=== PATIENT | male | born 1995 | race Caucasian/White ===

== ENCOUNTER 2021-05-24 00:37 | Inpatient (IN) | payer SELFPAY ==
[2021-05-24] MEDS ORDERED: Sodium Bicarb 50 MEQ/50 ML Abboject 8.4% SYRINGE ONE ×3 (00:48→04:39)
[2021-05-24] MEDS ORDERED: CEFAZOLIN 1 GM VIAL ONE (00:58)
[2021-05-24] MEDS ORDERED: Boostrix 0.5 ML (Tdap) VIAL ONE (00:58)
[2021-05-24 00:59] LABS: #Basophils 0.1 thou/uL (0.0-0.2); #Eosinphils 0.1 thou/uL (0.0-0.7); #Lymphocytes 4.2 thou/uL (1.20-3.40); #Monocytes 0.5 thou/uL (0.11-0.59); #Neutrophils 5.7 thou/uL (1.40-6.50); %Basophils 0.6 % (0.0-1.0); %Eosinophils 1.4 % (0.0-10.0); %Lymphocytes 39.2 % (21.0-51.0); %Monocytes 4.9 % (0.0-10.0); Hemoglobin 14.8 g/dL (14.0-18.0); Mean Corpuscular HGB CONC 32.7 g/dL (32.0-36.0); Mean Corpuscular Hemoglobin 33.2 pg (27.0-31.0); Mean Platelet Volume 7.7 fL (7.4-10.4); Platelet Count 251 thou/uL (130-400); RBC Distribution Width 11.8 % (11.5-14.5); Red Blood Cell (RBC) Count 4.45 mill/uL (4.70-6.10); White Blood Cell (WBC) Count 10.6 thou/uL (4.8-10.8)
[2021-05-24] MEDS ORDERED: fentaNYL Citrate/PF 2,000 MCG in Sodium Chloride 0.9% 60 ML IV SCH (01:00)
[2021-05-24 01:10] LABS: Prothrombin Time 51.7 sec (12.0-14.7)
[2021-05-24 01:11] LABS: PTT 107.4 sec (22.9-36.1)
[2021-05-24 01:12] LABS: INR-International Normal Ratio 5.5
[2021-05-24 01:28] LABS: Actual Bicarbonate (HCO3a) 9.4 mEq/L (22-28); Analyzer IN Cardio ER; CO2 Tension 37.7 mmHg (35.0-45.0); Calcium, Ionized (arterial) 0.55 mmol/L (1.12-1.30); Carboxyhemoglobin (COHb) 0.3 gm% (0.0-3.0); Hemoglobin (Hb) 13.8 g/dL (14.0-18.0); Potassium - ABG Lab 4.97 mmol/L (3.70-5.30)
[2021-05-24 01:33] LABS: Puncture Site RRA; pH, Arterial 7.01 (7.35-7.45)
[2021-05-24] MEDS ORDERED: Calcium Chloride 1 GM/10 ML Abboject SYRINGE ONE ×3 (01:33→09:19)
[2021-05-24 01:51] LABS: Anion Gap 34 mmol/L (10-20); BUN (Urea Nitrogen) 21 mg/dL (8.9-20.6); Bilirubin, Total 0.3 mg/dL (0.2-1.2); Calc. Creatinine Clearance 0 mL/min (70-130); Calcium 9.1 mg/dL (7.8-10.44); Carbon Dioxide 13 mmol/L (22-29); Chloride 100 mmol/L (98-107); Glucose 275 mg/dL (70-105); Sodium 140 mmol/L (136-145)
[2021-05-24 01:52] LABS: ALT (SGPT) 609 U/L (8-55); AST (SGOT) 579 U/L (5-34); Albumin 3.7 g/dL (3.5-5.0); Alkaline Phosphatase 64 U/L (40-110); Globulin 2.6 g/dL (2.4-3.5); Protein, Total 6.3 g/dL (6.0-8.3)
[2021-05-24 01:59] LABS: Potassium 6.6 mmol/L (3.5-5.1)
[2021-05-24] MEDS ORDERED: Phenylephrine 10 MG/ML VIAL ONE ×2 (02:13→04:07)
[2021-05-24] MEDS ORDERED: Fentanyl 100 MCG/2 ML VIAL ONE (02:13)
[2021-05-24] MEDS ORDERED: Heparin 5,000 UNITS/ML VIAL ONE ×2 (02:23→04:31)
[2021-05-24] MEDS ORDERED: Protamine Sulfate 50 MG/5 ML VIAL ONE (02:23)
[2021-05-24 02:35] LABS: INR-International Normal Ratio 1.3; Prothrombin Time 16.4 sec (12.0-14.7)
[2021-05-24] MEDS ORDERED: Vecuronium 10 MG VIAL ONE (02:45)
[2021-05-24] MEDS ORDERED: PHENYLEPHRINE-NS 100 MCG/ML 10 ML SYRINGE ONE (02:45)
[2021-05-24] MEDS ORDERED: Rocuronium Bromide 10 MG/ML (10ML VIAL) ONE (02:45)
[2021-05-24] MEDS ORDERED: Dextrose 50% Abboject 50 ML SYRINGE SLOW IVP PRN (02:58)
[2021-05-24] MEDS ORDERED: hydrALAZINE 20 MG/ML VIAL SLOW IVP PRN (02:58)
[2021-05-24] MEDS ORDERED: Insulin Regular 300 UNITS/3 ML VIAL SC PRN (02:58)
[2021-05-24] MEDS ORDERED: Dextrose 5% in Water 1,000 ML IV PRN (02:58)
[2021-05-24] MEDS ORDERED: Sodium Chloride 0.9% 1,000 ML IV SCH (03:15)
[2021-05-24] MEDS ORDERED: Ventilator Sedation Protocol 1 EACH FS SCH (03:15)
[2021-05-24] MEDS ORDERED: Propofol 1,000 MG/100 ML VIAL IV PRN (03:15)
[2021-05-24] MEDS ORDERED: Dextrose 50% Abboject 50 ML SYRINGE ONE (03:35)
[2021-05-24 04:15] LABS: Amphetamine Not Detected (NotDetected); Barbiturates Screen Not Detected (NotDetected); Benzodiazepine Screen Not Detected (NotDetected); Cocaine Metabolite Screen Not Detected (NotDetected); Methadone Not Detected (NotDetected); Methamphetamine Not Detected (NotDetected); Opiate Screen Not Detected (NotDetected); Oxycodone Screen Not Detected (NotDetected); Phencyclidine (PCP) Not Detected (NotDetected); THC/Cannabinoid Screen Not Detected (NotDetected); Tricyclic Screen Not Detected (NotDetected)
[2021-05-24 04:23] LABS: Bilirubin Negative (Negative); Blood, Urine 2+ (Negative); Clarity Clear (Clear); Glucose, Urine (Dipstick) Normal (Negative); Ketone, Urine Negative (Negative); Leukocyte Negative Leu/uL (Negative); Mucous/LPF Rare LPF (<2+); Nitrite Negative (Negative); Protein, Urine (Dipstick) 10 mg/dL (Neg-Trace); RBC/HPF 0-3 HPF (0-3); Specific Gravity, Urine 1.016 (1.002-1.036); Squamous Epithelial None Seen HPF (0-3); Urobilinogen Normal mg/dL (Less than 2); pH, Urine 5.5 (5.0-9.0)
[2021-05-24 04:24] LABS: Bacteria/HPF 1+ HPF (None Seen)
[2021-05-24 04:25] LABS: Urine Culture Reflex Yes Yes
[2021-05-24] MEDS ORDERED: Midazolam HCl 5 mg/5 ml Vial ONE (04:36)
[2021-05-24] MEDS ORDERED: Rocuronium Bromide 50 MG/5 ML VIAL ONE (04:39)
[2021-05-24 07:17] LABS: #Monocytes 0.6 thou/uL (0.11-0.59); #Neutrophils 16.4 thou/uL (1.40-6.50); %Basophils 0.1 % (0.0-1.0); %Eosinophils 0.2 % (0.0-10.0); %Lymphocytes 10.5 % (21.0-51.0); %Monocytes 3.1 % (0.0-10.0); %Neutrophils 86.2 % (42.0-75.0); Mean Corpuscular HGB CONC 33.1 g/dL (32.0-36.0); Mean Corpuscular Hemoglobin 30.5 pg (27.0-31.0); Mean Corpuscular Volume 92.1 fL (78.0-98.0); Platelet Count 224 thou/uL (130-400); RBC Distribution Width 13.4 % (11.5-14.5); Red Blood Cell (RBC) Count 3.93 mill/uL (4.70-6.10)
[2021-05-24 07:24] LABS: INR-International Normal Ratio 1.2; Prothrombin Time 15.7 sec (12.0-14.7)
[2021-05-24 07:43] LABS: Actual Bicarbonate (HCO3a) 19.1 mEq/L (22-28); Base Excess (BEa) -6.9 mEq/L (-2.0 to +3.0); CO2 Tension 40.1 mmHg (35.0-45.0); Calcium, Ionized (arterial) 1.13 mmol/L (1.12-1.30); Carboxyhemoglobin (COHb) 0.3 gm% (0.0-3.0); Hemoglobin (Hb) 10.9 g/dL (14.0-18.0); Potassium - ABG Lab 3.36 mmol/L (3.70-5.30)
[2021-05-24 07:44] LABS: Puncture Site RBA
[2021-05-24] MEDS ORDERED: Phenylephrine 40 MG, Admixture Fee 1 EACH in Sodium Chloride 0.9% 250 ML 250 ML IVPB SCH ×2 (07:45→08:00)
[2021-05-24] MEDS ORDERED: Phenylephrine 40 MG in Sodium Chloride 0.9% 250 ML 250 ML IVPB SCH (07:45)
[2021-05-24 07:47] LABS: ALV-art Gradient 120.075 mmHg (0-20)
[2021-05-24 07:54] LABS: Lactic Acid 4.1 mmol/L (0.5-2.2)
[2021-05-24 07:55] LABS: ALT (SGPT) 1030 U/L (8-55); AST (SGOT) 1038 U/L (5-34); Albumin 3.1 g/dL (3.5-5.0); Alkaline Phosphatase 56 U/L (40-110); Anion Gap 16 mmol/L (10-20); BUN (Urea Nitrogen) 20 mg/dL (8.9-20.6); Bilirubin, Total 0.7 mg/dL (0.2-1.2); CK (CPK) 1908 U/L (30-200); Calc. Creatinine Clearance 72 mL/min (70-130); Calcium 8.4 mg/dL (7.8-10.44); Carbon Dioxide 19 mmol/L (22-29); Chloride 117 mmol/L (98-107); Glucose 142 mg/dL (70-105); Magnesium 1.8 mg/dL (1.6-2.6); Phosphorus 2.9 mg/dL (2.3-4.7); Potassium 3.4 mmol/L (3.5-5.1); Protein, Total 5.1 g/dL (6.0-8.3); Sodium 149 mmol/L (136-145)
[2021-05-24] MEDS ORDERED: Lactated Ringer's 1,000 ML IV SCH (08:00)
[2021-05-24] MEDS ORDERED: Potassium Chloride 40 MEQ in Premix Bag 1 BAG IVPB SCH (08:15)
[2021-05-24] MEDS ORDERED: Sodium Bicarb 50 MEQ/50 ML Abboject 8.4% SYRINGE IVP SCH (08:15)
[2021-05-24] MEDS: Lactated Ringer's 1,000 ML IV SCH ×3 (08:28→20:04)
[2021-05-24] MEDS ORDERED: Magnesium 2 GM/50 ML 2 GM in Premix Bag 1 BAG IVPB SCH (08:30)
[2021-05-24] MEDS: Famotidine/PF 20 mg/2ml Vial SLOW IVP SCH (08:30)
[2021-05-24] MEDS ORDERED: Hydrocortisone Sod Succ/PF 100 mg/2 ml Vial ONE (09:22)
[2021-05-24] MEDS ORDERED: Iopamidol 370 76% 50 ML VIAL FS ONE (09:40)
[2021-05-24] MEDS ORDERED: Iopamidol 370 76% 100 ML VIAL ONE (09:40)
[2021-05-24] MEDS ORDERED: Hydrocortisone Sod Succ/PF 100 mg/2 ml Vial IVP SCH (09:45)
[2021-05-24] MEDS: Sodium Chloride 0.9% 1,000 ML IV SCH ×3 (09:50→11:26)
[2021-05-24] MEDS ORDERED: Calcium Chloride 1 GM/10 ML Abboject SYRINGE IVP SCH (10:15)
[2021-05-24] MEDS ORDERED: Cyclobenzaprine 10 MG TAB PO PRN (10:32)
[2021-05-24] MEDS ORDERED: traMADol HCl 50 MG TAB PO PRN (10:32)
[2021-05-24] MEDS ORDERED: FLU VACC QS2021-22(6MOS UP)/PF 60 MCG/0.5 ML SYRINGE IM ONE (11:45)
[2021-05-24] MEDS ORDERED: traMADol HCl 50 MG TAB PO SCH (12:00)
[2021-05-24] MEDS ORDERED: Fentanyl 100 MCG/2 ML VIAL SLOW IVP PRN (13:11)
[2021-05-24] MEDS ORDERED: Morphine 4 MG/ML VIAL SLOW IVP PRN (13:22)
[2021-05-24 13:39] LABS: #Lymphocytes 0.6 thou/uL (1.20-3.40); #Monocytes 0.5 thou/uL (0.11-0.59); #Neutrophils 11.6 thou/uL (1.40-6.50); %Eosinophils 0.2 % (0.0-10.0); %Lymphocytes 4.8 % (21.0-51.0); %Monocytes 3.8 % (0.0-10.0); %Neutrophils 91.3 % (42.0-75.0); Hemoglobin 9.5 g/dL (14.0-18.0); Mean Corpuscular HGB CONC 35.3 g/dL (32.0-36.0); Mean Corpuscular Hemoglobin 32.1 pg (27.0-31.0); Mean Corpuscular Volume 91.1 fL (78.0-98.0); Mean Platelet Volume 7.4 fL (7.4-10.4); Platelet Count 151 thou/uL (130-400); RBC Distribution Width 13.7 % (11.5-14.5); Red Blood Cell (RBC) Count 2.95 mill/uL (4.70-6.10); White Blood Cell (WBC) Count 12.7 thou/uL (4.8-10.8)
[2021-05-24 14:01] LABS: Lactic Acid 3.2 mmol/L (0.5-2.2)
[2021-05-24 14:06] LABS: Phosphorus 1.6 mg/dL (2.3-4.7)
[2021-05-24 14:08] LABS: ALT (SGPT) 736 U/L (8-55); AST (SGOT) 829 U/L (5-34); Albumin 2.8 g/dL (3.5-5.0); Alkaline Phosphatase 49 U/L (40-110); Anion Gap 13 mmol/L (10-20); BUN (Urea Nitrogen) 20 mg/dL (8.9-20.6); Calc. Creatinine Clearance 62 mL/min (70-130); Calcium 8.5 mg/dL (7.8-10.44); Carbon Dioxide 23 mmol/L (22-29); Chloride 115 mmol/L (98-107); Globulin 1.9 g/dL (2.4-3.5); Glucose 133 mg/dL (70-105); Magnesium 1.8 mg/dL (1.6-2.6); Potassium 3.9 mmol/L (3.5-5.1); Protein, Total 4.7 g/dL (6.0-8.3); Sodium 147 mmol/L (136-145)
[2021-05-24] MEDS: Gabapentin 300 MG CAP PO SCH ×2 (14:14→21:10)
[2021-05-24 14:20] LABS: CK (CPK) 4572 U/L (30-200)
[2021-05-24] MEDS ORDERED: Potassium Phosphate 15 MMOL in Sodium Chloride 0.9% 250 ML 250 ML IVPB SCH (14:30)
[2021-05-24] MEDS ORDERED: Gabapentin 300 MG CAP PO SCH (15:00)
[2021-05-24 15:30] LABS: SARS-CoV-2 PCR by NAA Not Detected (NotDetected)
[2021-05-24] MEDS: Hydrocortisone Sod Succ/PF 100 mg/2 ml Vial IVP SCH ×2 (17:00→21:09)
[2021-05-24] MEDS: traMADol HCl 50 MG TAB PO SCH (17:02)
[2021-05-24] MEDS: Morphine 4 MG/ML VIAL SLOW IVP PRN (20:13)
[2021-05-24] MEDS: Ascorbic Acid 500 mg Chewable Tablet PO SCH (21:10)
[2021-05-24] MEDS: Ferrous Sulfate 325 MG TAB PO SCH (21:10)
[2021-05-25] MEDS: Lactated Ringer's 1,000 ML IV SCH ×4 (00:08→22:50)
[2021-05-25] MEDS: traMADol HCl 50 MG TAB PO SCH ×5 (00:08→22:36)
[2021-05-25] MEDS: Hydrocortisone Sod Succ/PF 100 mg/2 ml Vial IVP SCH ×4 (03:50→22:34)
[2021-05-25 04:43] LABS: Hemoglobin 7.9 g/dL (14.0-18.0); Mean Corpuscular HGB CONC 34.8 g/dL (32.0-36.0); Mean Corpuscular Hemoglobin 31.9 pg (27.0-31.0); Mean Corpuscular Volume 91.8 fL (78.0-98.0); RBC Distribution Width 13.6 % (11.5-14.5); Red Blood Cell (RBC) Count 2.49 mill/uL (4.70-6.10); White Blood Cell (WBC) Count 12.3 thou/uL (4.8-10.8)
[2021-05-25 05:06] LABS: ALT (SGPT) 868 U/L (8-55); AST (SGOT) 822 U/L (5-34); Albumin 2.6 g/dL (3.5-5.0); Alkaline Phosphatase 43 U/L (40-110); Anion Gap 7 mmol/L (10-20); BUN (Urea Nitrogen) 22 mg/dL (8.9-20.6); Bilirubin, Total 1.1 mg/dL (0.2-1.2); Calc. Creatinine Clearance 64 mL/min (70-130); Calcium 7.8 mg/dL (7.8-10.44); Carbon Dioxide 27 mmol/L (22-29); Chloride 111 mmol/L (98-107); Globulin 1.7 g/dL (2.4-3.5); Glucose 111 mg/dL (70-105); Magnesium 1.5 mg/dL (1.6-2.6); Phosphorus 3.5 mg/dL (2.3-4.7); Potassium 3.7 mmol/L (3.5-5.1); Protein, Total 4.3 g/dL (6.0-8.3); Sodium 141 mmol/L (136-145)
[2021-05-25 05:15] LABS: CK (CPK) 5488 U/L (30-200)
[2021-05-25 05:17] LABS: #Lymphocytes 0.9 thou/uL (1.20-3.40); #Monocytes 0.4 thou/uL (0.11-0.59); %Basophils 0.1 % (0.0-1.0); %Eosinophils 0.1 % (0.0-10.0); %Lymphocytes 6.9 % (21.0-51.0); %Monocytes 3.5 % (0.0-10.0); %Neutrophils 89.4 % (42.0-75.0); Mean Platelet Volume 7.5 fL (7.4-10.4); Platelet Count 115 thou/uL (130-400)
[2021-05-25] MEDS: Gabapentin 300 MG CAP PO SCH ×3 (05:59→22:29)
[2021-05-25] MEDS ORDERED: Potassium Phosphate 15 MMOL, Magnesium Sulfate 4 GM in Sodium Chloride 0.9% 250 ML 250 ML IVPB SCH (08:00)
[2021-05-25] MEDS: Ondansetron PF 4 MG/2 ML Vial IVP PRN (08:16)
[2021-05-25] MEDS: Morphine 4 MG/ML VIAL SLOW IVP PRN ×2 (08:17→18:11)
[2021-05-25] MEDS: Ferrous Sulfate 325 MG TAB PO SCH ×2 (08:56→22:35)
[2021-05-25] MEDS: Ascorbic Acid 500 mg Chewable Tablet PO SCH ×2 (08:56→22:28)
[2021-05-25] MEDS: Famotidine/PF 20 mg/2ml Vial SLOW IVP SCH (08:56)
[2021-05-25] MEDS: Scopolamine 1.5 mg/72 hour Patch TD SCH (08:57)
[2021-05-25 16:33] LABS: #Lymphocytes 0.7 thou/uL (1.20-3.40); #Monocytes 0.4 thou/uL (0.11-0.59); #Neutrophils 9.3 thou/uL (1.40-6.50); %Basophils 0.1 % (0.0-1.0); %Eosinophils 0.1 % (0.0-10.0); %Lymphocytes 6.8 % (21.0-51.0); %Monocytes 3.7 % (0.0-10.0); %Neutrophils 89.3 % (42.0-75.0); Hemoglobin 7.5 g/dL (14.0-18.0); Mean Corpuscular HGB CONC 33.9 g/dL (32.0-36.0); Mean Corpuscular Hemoglobin 31.2 pg (27.0-31.0); Mean Corpuscular Volume 92.1 fL (78.0-98.0); Mean Platelet Volume 7.1 fL (7.4-10.4); Platelet Count 88 thou/uL (130-400); RBC Distribution Width 13.4 % (11.5-14.5); Red Blood Cell (RBC) Count 2.41 mill/uL (4.70-6.10); White Blood Cell (WBC) Count 10.4 thou/uL (4.8-10.8)
[2021-05-25 17:03] LABS: CK (CPK) 4656 U/L (30-200)
[2021-05-25 17:05] LABS: Anion Gap 9 mmol/L (10-20); BUN (Urea Nitrogen) 22 mg/dL (8.9-20.6); Calc. Creatinine Clearance 83 mL/min (70-130); Calcium 7.8 mg/dL (7.8-10.44); Carbon Dioxide 23 mmol/L (22-29); Chloride 110 mmol/L (98-107); Glucose 90 mg/dL (70-105); Magnesium 2.6 mg/dL (1.6-2.6); Phosphorus 2.2 mg/dL (2.3-4.7); Potassium 3.7 mmol/L (3.5-5.1); Sodium 138 mmol/L (136-145)
[2021-05-25] MEDS: Senokot S 8.6-50 MG TAB PO SCH (22:28)
[2021-05-26] MEDS: Hydrocortisone Sod Succ/PF 100 mg/2 ml Vial IVP SCH ×3 (04:16→20:45)
[2021-05-26] MEDS: Gabapentin 300 MG CAP PO SCH (04:17)
[2021-05-26] MEDS: Lactated Ringer's 1,000 ML IV SCH ×5 (05:00→22:22)
[2021-05-26] MEDS: traMADol HCl 50 MG TAB PO SCH ×3 (05:54→17:27)
[2021-05-26 07:41] LABS: #Lymphocytes 0.5 thou/uL (1.20-3.40); #Monocytes 0.4 thou/uL (0.11-0.59); %Basophils 0.1 % (0.0-1.0); %Eosinophils 0.2 % (0.0-10.0); %Lymphocytes 5.1 % (21.0-51.0); %Monocytes 4.9 % (0.0-10.0); %Neutrophils 89.7 % (42.0-75.0); Hemoglobin 7.1 g/dL (14.0-18.0); Mean Corpuscular HGB CONC 33.8 g/dL (32.0-36.0); Mean Corpuscular Hemoglobin 31.2 pg (27.0-31.0); Mean Corpuscular Volume 92.3 fL (78.0-98.0); Mean Platelet Volume 8.2 fL (7.4-10.4); Platelet Count 91 thou/uL (130-400); RBC Distribution Width 13.1 % (11.5-14.5); Red Blood Cell (RBC) Count 2.28 mill/uL (4.70-6.10); White Blood Cell (WBC) Count 8.9 thou/uL (4.8-10.8)
[2021-05-26 08:25] LABS: Calcium 7.7 mg/dL (7.8-10.44); Chloride 106 mmol/L (98-107); Sodium 135 mmol/L (136-145)
[2021-05-26 08:26] LABS: Glucose 97 mg/dL (70-105)
[2021-05-26 08:27] LABS: Anion Gap 8 mmol/L (10-20); Carbon Dioxide 25 mmol/L (22-29)
[2021-05-26 08:29] LABS: Calc. Creatinine Clearance 77 mL/min (70-130)
[2021-05-26 08:30] LABS: BUN (Urea Nitrogen) 22 mg/dL (8.9-20.6)
[2021-05-26 08:31] LABS: Magnesium 2.2 mg/dL (1.6-2.6)
[2021-05-26] MEDS: Polyethylene Glycol 3350 17 GM Packet PO SCH (08:31)
[2021-05-26] MEDS: Famotidine/PF 20 mg/2ml Vial SLOW IVP SCH ×2 (08:31→20:44)
[2021-05-26] MEDS: Ascorbic Acid 500 mg Chewable Tablet PO SCH ×2 (08:31→20:44)
[2021-05-26] MEDS: Ferrous Sulfate 325 MG TAB PO SCH ×2 (08:31→20:44)
[2021-05-26] MEDS: Aspirin 325 MG TAB PO SCH (08:31)
[2021-05-26] MEDS: Senokot S 8.6-50 MG TAB PO SCH ×2 (08:31→20:44)
[2021-05-26 08:32] LABS: CK (CPK) 3071 U/L (30-200)
[2021-05-26 08:33] LABS: Phosphorus 3.6 mg/dL (2.3-4.7)
[2021-05-26] MEDS: Pregabalin 75 MG CAP PO SCH (20:44)
[2021-05-27] MEDS: traMADol HCl 50 MG TAB PO SCH ×2 (00:09→04:59)
[2021-05-27] MEDS: Lactated Ringer's 1,000 ML IV SCH (03:06)
[2021-05-27 03:47] VITALS: BMI 23.9
[2021-05-27 06:06] LABS: #Lymphocytes 0.7 thou/uL (1.20-3.40); #Monocytes 0.3 thou/uL (0.11-0.59); #Neutrophils 4.4 thou/uL (1.40-6.50); %Basophils 0.3 % (0.0-1.0); %Eosinophils 0.6 % (0.0-10.0); %Lymphocytes 12.9 % (21.0-51.0); %Monocytes 6.2 % (0.0-10.0); Hemoglobin 8.5 g/dL (14.0-18.0); Mean Corpuscular HGB CONC 34.5 g/dL (32.0-36.0); Mean Corpuscular Hemoglobin 31.6 pg (27.0-31.0); Mean Corpuscular Volume 91.5 fL (78.0-98.0); Mean Platelet Volume 7.8 fL (7.4-10.4); Platelet Count 113 thou/uL (130-400); RBC Distribution Width 12.5 % (11.5-14.5); White Blood Cell (WBC) Count 5.5 thou/uL (4.8-10.8)
[2021-05-27 06:38] LABS: Anion Gap 8 mmol/L (10-20); BUN (Urea Nitrogen) 18 mg/dL (8.9-20.6); CK (CPK) 2305 U/L (30-200); Calc. Creatinine Clearance 91 mL/min (70-130); Calcium 7.9 mg/dL (7.8-10.44); Carbon Dioxide 28 mmol/L (22-29); Chloride 102 mmol/L (98-107); Glucose 84 mg/dL (70-105); Magnesium 1.9 mg/dL (1.6-2.6); Phosphorus 2.4 mg/dL (2.3-4.7); Potassium 3.6 mmol/L (3.5-5.1); Sodium 134 mmol/L (136-145)
[2021-05-27] MEDS ORDERED: Sodium Chloride 0.9% 1,000 ML IV SCH (07:45)
[2021-05-27] MEDS ORDERED: Magnesium Sulfate 3 GM in Sodium Chloride 0.9% 100 ML IV SCH (09:00)
[2021-05-27] MEDS ORDERED: Potassium Phosphate 30 MMOL, Magnesium Sulfate 3 GM in Sodium Chloride 0.9% 250 ML 250 ML IVPB SCH (09:00)
[2021-05-27] MEDS: Famotidine/PF 20 mg/2ml Vial SLOW IVP SCH ×2 (09:08→20:04)
[2021-05-27] MEDS: Hydrocortisone Sod Succ/PF 100 mg/2 ml Vial IVP SCH ×2 (09:09→20:04)
[2021-05-27] MEDS: Ascorbic Acid 500 mg Chewable Tablet PO SCH ×2 (09:09→20:05)
[2021-05-27] MEDS: Pregabalin 75 MG CAP PO SCH ×2 (09:09→20:05)
[2021-05-27] MEDS: Aspirin 325 MG TAB PO SCH (09:10)
[2021-05-27] MEDS: Ferrous Sulfate 325 MG TAB PO SCH ×2 (09:10→20:05)
[2021-05-27] MEDS: Polyethylene Glycol 3350 17 GM Packet PO SCH (09:10)
[2021-05-27] MEDS: Senokot S 8.6-50 MG TAB PO SCH ×2 (09:10→20:04)
[2021-05-27] MEDS ORDERED: Acetaminophen 500 MG TAB PO PRN (10:33)
[2021-05-27] MEDS ORDERED: Acetaminophen/Codeine 30-300mg Tablet PO SCH (10:45)
[2021-05-27] MEDS: Acetaminophen/Codeine 30-300mg Tablet PO SCH ×2 (18:10→23:17)
[2021-05-28] MEDS: Acetaminophen/Codeine 30-300mg Tablet PO SCH ×3 (05:16→17:56)
[2021-05-28 06:38] LABS: #Eosinphils 0.1 thou/uL (0.0-0.7); #Lymphocytes 0.8 thou/uL (1.20-3.40); #Monocytes 0.5 thou/uL (0.11-0.59); #Neutrophils 3.2 thou/uL (1.40-6.50); %Basophils 0.2 % (0.0-1.0); %Eosinophils 2.6 % (0.0-10.0); %Lymphocytes 17.5 % (21.0-51.0); %Monocytes 10.3 % (0.0-10.0); %Neutrophils 69.3 % (42.0-75.0); Hemoglobin 8.1 g/dL (14.0-18.0); Mean Corpuscular HGB CONC 34.4 g/dL (32.0-36.0); Mean Corpuscular Hemoglobin 31.4 pg (27.0-31.0); Mean Corpuscular Volume 91.4 fL (78.0-98.0); Mean Platelet Volume 6.7 fL (7.4-10.4); Platelet Count 164 thou/uL (130-400); RBC Distribution Width 12.6 % (11.5-14.5); Red Blood Cell (RBC) Count 2.59 mill/uL (4.70-6.10); White Blood Cell (WBC) Count 4.7 thou/uL (4.8-10.8)
[2021-05-28 06:57] LABS: Anion Gap 9 mmol/L (10-20); BUN (Urea Nitrogen) 11 mg/dL (8.9-20.6); CK (CPK) 1509 U/L (30-200); Calc. Creatinine Clearance 106 mL/min (70-130); Calcium 7.9 mg/dL (7.8-10.44); Carbon Dioxide 28 mmol/L (22-29); Chloride 106 mmol/L (98-107); Glucose 95 mg/dL (70-105); Magnesium 2.1 mg/dL (1.6-2.6); Potassium 3.5 mmol/L (3.5-5.1); Sodium 139 mmol/L (136-145)
[2021-05-28] MEDS: Aspirin 325 MG TAB PO SCH (08:29)
[2021-05-28] MEDS: Ferrous Sulfate 325 MG TAB PO SCH ×2 (08:29→21:12)
[2021-05-28] MEDS: Ascorbic Acid 500 mg Chewable Tablet PO SCH ×2 (08:29→21:12)
[2021-05-28] MEDS: Scopolamine 1.5 mg/72 hour Patch TD SCH (08:29)
[2021-05-28] MEDS: Pregabalin 75 MG CAP PO SCH ×2 (08:30→21:13)
[2021-05-28] MEDS: Famotidine/PF 20 mg/2ml Vial SLOW IVP SCH ×2 (08:31→21:12)
[2021-05-28] MEDS: Hydrocortisone Sod Succ/PF 100 mg/2 ml Vial IVP SCH ×2 (08:42→21:12)
[2021-05-28] MEDS: Senokot S 8.6-50 MG TAB PO SCH ×2 (08:43→21:12)
[2021-05-28] MEDS: Polyethylene Glycol 3350 17 GM Packet PO SCH (08:43)
[2021-05-29] MEDS: Acetaminophen/Codeine 30-300mg Tablet PO SCH ×5 (00:02→23:36)
[2021-05-29 06:55] LABS: #Eosinphils 0.1 thou/uL (0.0-0.7); #Lymphocytes 1.1 thou/uL (1.20-3.40); #Monocytes 0.7 thou/uL (0.11-0.59); #Neutrophils 6.9 thou/uL (1.40-6.50); %Basophils 0.3 % (0.0-1.0); %Eosinophils 0.7 % (0.0-10.0); %Lymphocytes 12.2 % (21.0-51.0); %Monocytes 8.1 % (0.0-10.0); %Neutrophils 78.7 % (42.0-75.0); Hemoglobin 8.8 g/dL (14.0-18.0); Mean Corpuscular HGB CONC 35.1 g/dL (32.0-36.0); Mean Corpuscular Hemoglobin 31.8 pg (27.0-31.0); Mean Corpuscular Volume 90.7 fL (78.0-98.0); Mean Platelet Volume 7.2 fL (7.4-10.4); Platelet Count 234 thou/uL (130-400); RBC Distribution Width 12.8 % (11.5-14.5); Red Blood Cell (RBC) Count 2.77 mill/uL (4.70-6.10); White Blood Cell (WBC) Count 8.8 thou/uL (4.8-10.8)
[2021-05-29 07:42] LABS: Anion Gap 10 mmol/L (10-20); BUN (Urea Nitrogen) 9 mg/dL (8.9-20.6); Calc. Creatinine Clearance 121 mL/min (70-130); Calcium 8.3 mg/dL (7.8-10.44); Carbon Dioxide 26 mmol/L (22-29); Chloride 105 mmol/L (98-107); Glucose 100 mg/dL (70-105); Magnesium 1.9 mg/dL (1.6-2.6); Phosphorus 3.4 mg/dL (2.3-4.7); Potassium 3.2 mmol/L (3.5-5.1); Sodium 138 mmol/L (136-145)
[2021-05-29] MEDS ORDERED: Potassium Chloride 20 MEQ TAB PO SCH ×2 (08:00→08:30)
[2021-05-29] MEDS: Aspirin 325 MG TAB PO SCH (10:10)
[2021-05-29] MEDS: Pregabalin 75 MG CAP PO SCH ×2 (10:12→20:57)
[2021-05-29] MEDS: Ferrous Sulfate 325 MG TAB PO SCH ×2 (10:13→20:57)
[2021-05-29] MEDS: Senokot S 8.6-50 MG TAB PO SCH ×2 (10:13→20:57)
[2021-05-29] MEDS: Ascorbic Acid 500 mg Chewable Tablet PO SCH ×2 (10:13→20:57)
[2021-05-29] MEDS: Polyethylene Glycol 3350 17 GM Packet PO SCH (10:14)
[2021-05-29] MEDS: Famotidine/PF 20 mg/2ml Vial SLOW IVP SCH ×2 (10:14→20:57)
[2021-05-29] MEDS: Hydrocortisone Sod Succ/PF 100 mg/2 ml Vial IVP SCH ×2 (10:15→20:57)
[2021-05-29] MEDS: Amoxicillin/Potassium Clav 500 MG TAB PO SCH ×2 (13:20→20:57)
[2021-05-30] MEDS: Acetaminophen/Codeine 30-300mg Tablet PO SCH ×4 (05:19→23:28)
[2021-05-30 07:34] LABS: Anion Gap 9 mmol/L (10-20); BUN (Urea Nitrogen) 11 mg/dL (8.9-20.6); Calc. Creatinine Clearance 118 mL/min (70-130); Calcium 8.3 mg/dL (7.8-10.44); Carbon Dioxide 26 mmol/L (22-29); Chloride 106 mmol/L (98-107); Glucose 102 mg/dL (70-105); Magnesium 1.8 mg/dL (1.6-2.6); Phosphorus 3.7 mg/dL (2.3-4.7); Potassium 3.5 mmol/L (3.5-5.1); Sodium 137 mmol/L (136-145)
[2021-05-30] MEDS ORDERED: Potassium Chloride 20 MEQ TAB PO SCH (08:00)
[2021-05-30] MEDS: Famotidine/PF 20 mg/2ml Vial SLOW IVP SCH ×2 (09:14→20:45)
[2021-05-30] MEDS: Ferrous Sulfate 325 MG TAB PO SCH ×2 (09:14→20:47)
[2021-05-30] MEDS: Amoxicillin/Potassium Clav 500 MG TAB PO SCH ×2 (09:14→20:46)
[2021-05-30] MEDS: Senokot S 8.6-50 MG TAB PO SCH ×2 (09:14→20:46)
[2021-05-30] MEDS: Aspirin 325 MG TAB PO SCH (09:14)
[2021-05-30] MEDS: Pregabalin 75 MG CAP PO SCH ×2 (09:15→20:47)
[2021-05-30] MEDS: Polyethylene Glycol 3350 17 GM Packet PO SCH (09:15)
[2021-05-30] MEDS: Ascorbic Acid 500 mg Chewable Tablet PO SCH ×2 (09:15→20:47)
[2021-05-30 12:01] LABS: Actual Bicarbonate (HCO3v) 21 mEq/L (22-28); Analyzer IN Cardio OR; Base Excess -7.6 mEq/L (-2.0 to +3.0); Chloride (VBG) 112 mmol/L (98-106); Hemoglobin (Hb) 12.5 g/dL (13.2-17.3); Potassium (VBG) 3.56 mmol/L (3.70-5.30); Sodium 147.4 mmol/L (133-146)
[2021-05-30 12:02] LABS: Actual Bicarbonate (HCO3v) 24 mEq/L (22-28); Analyzer IN Cardio OR; Base Excess -3.5 mEq/L (-2.0 to +3.0); Chloride (VBG) 114 mmol/L (98-106); Hemoglobin (Hb) 10.4 g/dL (13.2-17.3); Potassium (VBG) 3.39 mmol/L (3.70-5.30); Sodium 151.4 mmol/L (133-146); pH (venous) 7.27 (7.32-7.43)
[2021-05-30 12:03] LABS: pH (venous) 7.19 (7.32-7.43)
[2021-05-30 15:04] LABS: #Eosinphils 0.3 thou/uL (0.0-0.7); #Lymphocytes 1.6 thou/uL (1.20-3.40); #Monocytes 1.2 thou/uL (0.11-0.59); #Neutrophils 6.8 thou/uL (1.40-6.50); %Eosinophils 2.6 % (0.0-10.0); %Lymphocytes 16.1 % (21.0-51.0); %Monocytes 12.2 % (0.0-10.0); %Neutrophils 69.2 % (42.0-75.0); Hemoglobin 9.2 g/dL (14.0-18.0); Mean Corpuscular HGB CONC 35.1 g/dL (32.0-36.0); Mean Corpuscular Volume 91.3 fL (78.0-98.0); Mean Platelet Volume 7.4 fL (7.4-10.4); Platelet Count 258 thou/uL (130-400); RBC Distribution Width 14.1 % (11.5-14.5); Red Blood Cell (RBC) Count 2.89 mill/uL (4.70-6.10); White Blood Cell (WBC) Count 9.8 thou/uL (4.8-10.8)
[2021-05-30] MEDS: Sodium Chloride 0.9% 1,000 ML IV SCH ×2 (17:08→22:27)
[2021-05-31 00:43] LABS: SARS-CoV-2 PCR by NAA Not Detected (NotDetected)
[2021-05-31] MEDS: Sodium Chloride 0.9% 1,000 ML IV SCH (02:00)
[2021-05-31 05:28] LABS: #Eosinphils 0.1 thou/uL (0.0-0.7); #Lymphocytes 1.3 thou/uL (1.20-3.40); #Monocytes 0.7 thou/uL (0.11-0.59); #Neutrophils 4.1 thou/uL (1.40-6.50); %Basophils 0.2 % (0.0-1.0); %Eosinophils 2.1 % (0.0-10.0); %Lymphocytes 21.5 % (21.0-51.0); %Monocytes 11.4 % (0.0-10.0); %Neutrophils 64.9 % (42.0-75.0); Hemoglobin 8.1 g/dL (14.0-18.0); Mean Corpuscular HGB CONC 34.2 g/dL (32.0-36.0); Mean Corpuscular Hemoglobin 31.7 pg (27.0-31.0); Mean Corpuscular Volume 92.6 fL (78.0-98.0); Mean Platelet Volume 6.5 fL (7.4-10.4); Platelet Count 293 thou/uL (130-400); RBC Distribution Width 14.2 % (11.5-14.5); Red Blood Cell (RBC) Count 2.56 mill/uL (4.70-6.10); White Blood Cell (WBC) Count 6.2 thou/uL (4.8-10.8)
[2021-05-31] MEDS: Acetaminophen/Codeine 30-300mg Tablet PO SCH ×3 (05:59→18:40)
[2021-05-31] MEDS: Ascorbic Acid 500 mg Chewable Tablet PO SCH (08:48)
[2021-05-31] MEDS: Amoxicillin/Potassium Clav 500 MG TAB PO SCH (08:48)
[2021-05-31] MEDS: Ferrous Sulfate 325 MG TAB PO SCH (08:49)
[2021-05-31] MEDS: Pregabalin 75 MG CAP PO SCH (08:49)
[2021-05-31] MEDS: Senokot S 8.6-50 MG TAB PO SCH (08:49)
[2021-05-31] MEDS: Aspirin 325 MG TAB PO SCH (08:49)
[2021-05-31] MEDS: Polyethylene Glycol 3350 17 GM Packet PO SCH (08:49)
[2021-05-31] MEDS: Famotidine/PF 20 mg/2ml Vial SLOW IVP SCH (10:07)
[2021-05-31] MEDS ORDERED: Fentanyl 100 MCG/2 ML VIAL ONE ×3 (12:19→17:57)
[2021-05-31] MEDS ORDERED: Bupivacaine PF 0.5% 30 ML VIAL ONE (12:28)
[2021-05-31] MEDS ORDERED: Neomycin-Polymyxin 1 ML AMP ONE (12:28)
[2021-05-31] MEDS ORDERED: Bacitracin Zinc Ointment 30 gm TUBE ONE (12:28)
[2021-05-31] MEDS ORDERED: PROPOFOL 200 MG/20 ML VIAL ONE (13:07)
[2021-05-31] MEDS ORDERED: Dexamethasone 20 MG/5 ML VIAL ONE (13:07)
[2021-05-31] MEDS ORDERED: PHENYLEPHRINE-NS 100 MCG/ML 10 ML SYRINGE ONE (13:07)
[2021-05-31] MEDS ORDERED: Lidocaine 1% PF 5 ML VIAL ONE (13:07)
[2021-05-31] MEDS ORDERED: Ketorolac Tromethamine 30 MG/ML VIAL ONE (13:07)
[2021-05-31] MEDS ORDERED: Ondansetron PF 4 MG/2 ML Vial ONE (13:07)
[2021-05-31] MEDS ORDERED: Thrombin 5000 UNITS/5 ML VIAL ONE (14:21)
[2021-05-31] MEDS ORDERED: CEFAZOLIN 1 GM VIAL ONE ×2 (17:07→20:51)
[2021-05-31] MEDS ORDERED: HYDROmorphone 2 MG/ML VIAL ONE (22:06)
[2021-05-31] MEDS ORDERED: Promethazine HCl 25 MG/ML VIAL IVPB PRN (22:32)
[2021-05-31] MEDS ORDERED: Promethazine HCl 25 MG/ML VIAL IM PRN (22:32)
[2021-05-31] MEDS ORDERED: Morphine Sulfate 2 MG/ML SYRINGE SLOW IVP PRN (22:32)
[2021-05-31] MEDS ORDERED: PACU-Morphine 4MG/ML VIAL SLOW IVP PRN (22:32)
[2021-05-31] MEDS ORDERED: Meperidine HCl/PF 25 MG/ML VIAL SLOW IVP PRN (22:32)
[2021-05-31] MEDS ORDERED: Ondansetron HCl/PF 4 MG/2 ML Vial IVP PRN (22:32)
[2021-05-31] MEDS ORDERED: HYDROmorphone 2 MG/ML VIAL SLOW IVP PRN (22:32)
[2021-06-01] MEDS: Ascorbic Acid 500 mg Chewable Tablet PO SCH (00:03)
[2021-06-01] MEDS: Pregabalin 75 MG CAP PO SCH (00:03)
[2021-06-01] MEDS: Ferrous Sulfate 325 MG TAB PO SCH (00:03)
[2021-06-01] MEDS: Senokot S 8.6-50 MG TAB PO SCH ×3 (00:03→21:00)
[2021-06-01] MEDS: Amoxicillin/Potassium Clav 500 MG TAB PO SCH ×3 (00:03→21:01)
[2021-06-01] MEDS: Acetaminophen/Codeine 30-300mg Tablet PO SCH ×3 (00:28→11:16)
[2021-06-01] MEDS ORDERED: Meperidine HCl/PF 25 MG/ML VIAL IM PRN (00:44)
[2021-06-01] MEDS ORDERED: Promethazine HCl 25 MG/ML VIAL IM PRN (00:44)
[2021-06-01] MEDS ORDERED: Aspirin Chewable 81 MG TAB PO SCH ×2 (01:00→09:00)
[2021-06-01] MEDS: Clindamycin/D5W 900 MG in Premix Bag 1 BAG IVPB SCH ×3 (01:23→17:50)
[2021-06-01 05:14] LABS: #Lymphocytes 0.9 thou/uL (1.20-3.40); #Monocytes 1.1 thou/uL (0.11-0.59); #Neutrophils 8.2 thou/uL (1.40-6.50); %Eosinophils 0.2 % (0.0-10.0); %Lymphocytes 8.7 % (21.0-51.0); %Monocytes 10.9 % (0.0-10.0); %Neutrophils 80.2 % (42.0-75.0); Hemoglobin 9.3 g/dL (14.0-18.0); Mean Corpuscular HGB CONC 33.3 g/dL (32.0-36.0); Mean Corpuscular Hemoglobin 30.9 pg (27.0-31.0); Mean Platelet Volume 6.5 fL (7.4-10.4); Platelet Count 379 thou/uL (130-400); RBC Distribution Width 14.2 % (11.5-14.5); Red Blood Cell (RBC) Count 3.02 mill/uL (4.70-6.10); White Blood Cell (WBC) Count 10.2 thou/uL (4.8-10.8)
[2021-06-01 05:48] LABS: Anion Gap 9 mmol/L (10-20); BUN (Urea Nitrogen) 12 mg/dL (8.9-20.6); Calc. Creatinine Clearance 125 mL/min (70-130); Calcium 8.1 mg/dL (7.8-10.44); Carbon Dioxide 28 mmol/L (22-29); Chloride 105 mmol/L (98-107); Glucose 131 mg/dL (70-105); Magnesium 1.8 mg/dL (1.6-2.6); Phosphorus 3.6 mg/dL (2.3-4.7); Potassium 3.9 mmol/L (3.5-5.1); Sodium 138 mmol/L (136-145)
[2021-06-01] MEDS: HYDROcodone/Acetaminophen 10/325 mg Tablet PO PRN ×2 (08:18→16:16)
[2021-06-01] MEDS: Aspirin 325 MG TAB PO SCH (08:21)
[2021-06-01] MEDS: Polyethylene Glycol 3350 17 GM Packet PO SCH (08:21)
[2021-06-01] MEDS: Morphine 4 MG/ML VIAL SLOW IVP PRN ×2 (09:31→12:54)
[2021-06-01] MEDS: Ketorolac Tromethamine 30 MG/ML VIAL IVP PRN (13:15)
[2021-06-01] MEDS: Acetaminophen 325 MG TAB PO SCH (17:51)
[2021-06-01] MEDS: Ondansetron PF 4 MG/2 ML Vial IVP PRN (17:51)
[2021-06-01] MEDS: Pregabalin 50 MG CAP PO SCH (21:00)
[2021-06-02] MEDS: Clindamycin/D5W 900 MG in Premix Bag 1 BAG IVPB SCH (01:22)
[2021-06-02] MEDS: Acetaminophen 325 MG TAB PO SCH ×4 (01:24→18:57)
[2021-06-02] MEDS: HYDROcodone/Acetaminophen 10/325 mg Tablet PO PRN ×3 (01:25→21:54)
[2021-06-02 06:30] LABS: #Eosinphils 0.1 thou/uL (0.0-0.7); #Lymphocytes 1.2 thou/uL (1.20-3.40); #Monocytes 0.7 thou/uL (0.11-0.59); #Neutrophils 5.1 thou/uL (1.40-6.50); %Basophils 0.1 % (0.0-1.0); %Eosinophils 1.2 % (0.0-10.0); %Lymphocytes 17.2 % (21.0-51.0); %Monocytes 10.3 % (0.0-10.0); %Neutrophils 71.2 % (42.0-75.0); Hemoglobin 9.2 g/dL (14.0-18.0); Mean Corpuscular HGB CONC 35.5 g/dL (32.0-36.0); Mean Corpuscular Hemoglobin 33.5 pg (27.0-31.0); Mean Corpuscular Volume 94.3 fL (78.0-98.0); Mean Platelet Volume 6.5 fL (7.4-10.4); Platelet Count 323 thou/uL (130-400); RBC Distribution Width 14.1 % (11.5-14.5); Red Blood Cell (RBC) Count 2.74 mill/uL (4.70-6.10); White Blood Cell (WBC) Count 7.1 thou/uL (4.8-10.8)
[2021-06-02] MEDS: Senokot S 8.6-50 MG TAB PO SCH ×2 (08:45→20:57)
[2021-06-02] MEDS: Aspirin 325 MG TAB PO SCH (08:45)
[2021-06-02] MEDS: Amoxicillin/Potassium Clav 500 MG TAB PO SCH ×2 (08:45→20:57)
[2021-06-02] MEDS: Polyethylene Glycol 3350 17 GM Packet PO SCH (08:46)
[2021-06-02] MEDS: Pregabalin 50 MG CAP PO SCH (20:57)
[2021-06-02] MEDS: Ketorolac Tromethamine 30 MG/ML VIAL IVP PRN (20:57)
[2021-06-03] MEDS: Acetaminophen 325 MG TAB PO SCH ×3 (01:02→12:07)
[2021-06-03] MEDS: Amoxicillin/Potassium Clav 500 MG TAB PO SCH (08:46)
[2021-06-03] MEDS: Aspirin 325 MG TAB PO SCH (08:46)
[2021-06-03] MEDS: HYDROcodone/Acetaminophen 10/325 mg Tablet PO PRN (08:46)
[2021-06-03] MEDS: Polyethylene Glycol 3350 17 GM Packet PO SCH (08:47)
[2021-06-03] MEDS: Senokot S 8.6-50 MG TAB PO SCH (08:47)
[2021-06-03] MEDS ORDERED: Acetaminophen/Codeine 30-300mg Tablet PO PRN (14:03)
[2021-06-03 17:10] VITALS: BP 124/80; TEMP 98.3
[2021-06-03] MEDS ORDERED: Ibuprofen 200 MG TAB PO SCH (22:00)
[2021-06-04 10:30] LABS: Actual Bicarbonate (HCO3a) 24.5 mEq/L (22-28); Analyzer IN Cardio OR; Base Excess (BEa) -0.3 mEq/L (-2.0 to +3.0); CO2 Tension 40.6 mmHg (35.0-45.0); Calcium, Ionized (arterial) 1.13 mmol/L (1.12-1.30); Carboxyhemoglobin (COHb) 0.6 gm% (0.0-3.0); Hemoglobin (Hb) 10.9 g/dL (14.0-18.0); Puncture Site Arterial Line
== END 2021-06-03 17:30 | disposition home or self-care (01) | DRG 957 ==
LOC: ERS 00:37 → SDC/OP 02:38 → EEVIPCON 02:58 → CCU 02:58 → SURG B 05-25 11:32
PROVIDERS: ADMIT Surgery; ATTEND Surgery
PROC: 03R Upper Arteries, Replacement (ICD-10-PCS; 2021-05-24)
PROC: 06BQ4ZZ Excision of Left Saphenous Vein, Percutaneous Endoscopic Approach (ICD-10-PCS; 2021-05-24)
PROC: 5A1935Z Respiratory Ventilation, Less than 24 Consecutive Hours (ICD-10-PCS; 2021-05-24)
PROC: 0W9B30Z Drainage of Left Pleural Cavity with Drainage Device, Percutaneous Approach (ICD-10-PCS; 2021-05-24)
PROC: 30233K1 Transfusion of Nonautologous Frozen Plasma into Peripheral Vein, Percutaneous Approach (ICD-10-PCS; 2021-05-24)
PROC: 30233N1 Transfusion of Nonautologous Red Blood Cells into Peripheral Vein, Percutaneous Approach (ICD-10-PCS; 2021-05-24)
PROC: 30233R1 Transfusion of Nonautologous Platelets into Peripheral Vein, Percutaneous Approach (ICD-10-PCS; 2021-05-24)
PROC: 30233M1 Transfusion of Nonautologous Plasma Cryoprecipitate into Peripheral Vein, Percutaneous Approach (ICD-10-PCS; 2021-05-24)
PROC: 0HQ0XZZ Repair Scalp Skin, External Approach (ICD-10-PCS; 2021-05-24)
PROC: 01U50JZ Supplement Median Nerve with Synthetic Substitute, Open Approach (ICD-10-PCS; principal; 2021-05-31)
PROC: 01U60JZ Supplement Radial Nerve with Synthetic Substitute, Open Approach (ICD-10-PCS; 2021-05-31)
DX: S44.22XA Injury of radial nerve at upper arm level, left arm, initial encounter (principal); T79.4XXA Traumatic shock, initial encounter; S27.0XXA Traumatic pneumothorax, initial encounter; J96.00 Acute respiratory failure, unspecified whether with hypoxia or hypercapnia; S45.112A Laceration of brachial artery, left side, initial encounter; S21.112A Laceration without foreign body of left front wall of thorax without penetration into thoracic cavity, initial encounter; N17.9 Acute kidney failure, unspecified; E87.2 Acidosis; E27.40 Unspecified adrenocortical insufficiency; D62 Acute posthemorrhagic anemia; Z20.822 Contact with and (suspected) exposure to COVID-19; S41.112A Laceration without foreign body of left upper arm, initial encounter; X99.1XXA Assault by knife, initial encounter; R74.01 Elevation of levels of liver transaminase levels; S01.01XA Laceration without foreign body of scalp, initial encounter; S44.12 Injury of median nerve at upper arm level, left arm; E83.39 Other disorders of phosphorus metabolism; T79.6XXA Traumatic ischemia of muscle, initial encounter; N18.9 Chronic kidney disease, unspecified; E87.5 Hyperkalemia
CPT/HCPCS: 32551; 36415; 36416; 36430; 36600; 70450; 71045; 71260; 72125; 74177; 80048; 80053; 80306; 80307; 81001; 82533; 82550; 82805; 83605; 83735; 84100; 85025; 85610; 85730; 86850; 86900; 86901; 87086; 90715; 94002; 96374; 96375; 96376; C1713; C1776; C9352; G0390; J0690; J1100; J1170; J1644; J1720; J1885; J2175; J2250; J2270; J2370; J2405; J2704; J2720; J3010; J3475; J3480; J3490; J7030; J7050; J7120; J7189; P9012; P9016; P9035; P9048; P9059; Q9967; S0020; S0028; U0003; U0005